=== PATIENT | male | born 1995 | race Caucasian/White ===

== ENCOUNTER 2016-02-24 22:09 | Emergency (ER) | payer OTHER, MEDICAID ==
[2016-02-24] MEDS ORDERED: HYDROCODONE/APAP 10/325 TAB PO ONE (22:16)
[2016-02-24] MEDS ORDERED: IBUPROFEN 200 MG TAB PO ONE (22:16)
[2016-02-24] MEDS ORDERED: HYDROCODONE/APAP 5/325 TAB ONE (22:20)
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
[2016-02-24] MEDS ORDERED: HYDROCODONE/APAP 5/325 TAB PO ONE (22:23)
[2016-02-24 22:27] VITALS: RESP 16
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
[2016-02-24 23:54] LABS: COLOR YELLOW; LEUKOCYTE ESTERASE,URINE NEGATIVE (NEGATIVE); NITRITE,URINE NEGATIVE (NEGATIVE)
[2016-02-25 00:11] VITALS: BP 119/74; PULSE 57; TEMP 97.9; O2SAT 95
== END 2016-02-25 00:11 | disposition home or self-care (01) ==
DX: S33.5XXA Sprain of ligaments of lumbar spine, initial encounter (principal); F17.200 Nicotine dependence, unspecified, uncomplicated; V49.49XA Driver injured in collision with other motor vehicles in traffic accident, initial encounter; Y92.410 Unspecified street and highway as the place of occurrence of the external cause; Y93.89 Activity, other specified

== ENCOUNTER → 2016-04-23 | Outpatient (CLI) | payer MEDICAID | LOC: FIMAGING 15:14 | DX: M25.511 Pain in right shoulder (principal) ==

== ENCOUNTER 2018-03-01 17:46 | Emergency (ER) | payer MEDICAID ==
--- NOTE | 2018-03-01 18:37 | EDPHY ---
H & P Stated Complaint: muscle wasting and night sweats concerned he might have TB Source: Patient Exam Limitations: No limitations - Personal History Current Tetanus Diphtheria and Acellular Pertussis (TDAP): Unsure - Medical/Surgical History Hx Asthma: Yes Hx Chronic Respiratory Disease: No Hx Diabetes: No Hx Cardiac Disease: No Hx Renal Disease: No Hx Cirrhosis: No Hx Alcoholism: No Hx HIV/AIDS: No Hx Splenectomy or Spleen Trauma: No Other PMH: PTSD, schizophrenia, appendectomy - Social History Smoking Status: Former smoker Time Seen by Provider: 03/01/18 18:35 HPI/ROS: HPI: This is a 22-year-old male who presents with Chief Complaint: muscle wasting and night sweats concerned he might have TB Location: Body Quality: Night sweats, muscle wasting, cough Duration: Several years Signs and Symptoms: no fever, no nausea, no vomiting, no diarrhea, no urinary symptoms, no chest pain, no shortness of breath, no wheezing, no sore throat, no neck stiffness, no joint pain, no swollen glands, no ear pain, no rash Timing: Daily Severity: Moderate Context: Patient has a history of posttraumatic stress disorder, schizophrenia presents with 1-2 years of symptoms that include intermittent dry cough, 9 and sweats and muscle wasting but no weight loss, fevers, nausea, vomiting, rigors, chills. He reports that the symptoms occur every few months and last for a few days and then self-resolved. 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 Denies any homelessness, IV drug use, foreign travel. Patient does not have a primary care provider. Reports that he is not concerned about STDs including HIV. Patient used to smoke 1-2 packs per day more barrel reds but quit within the last 3 months. Modifying Factors: None Comment: ROS: A comprehensive 10 system review of systems is otherwise negative aside from elements mentioned in the history of present illness. MEDICAL/SURGICAL/SOCIAL HISTORY: Medical history: PTSD, schizophrenia Surgical history: Appendectomy Social history: Former smoker. Family history noncontributory. CONSTITUTIONAL: Extremely well-appearing young adult white male, awake and alert, no obvious distress HEENT: Atraumatic and normocephalic, PERRL, EOMI. Nares patent; no rhinorrhea; no nasal mucosal edema. Tympanic membranes clear. Oropharynx clear, no exudate and moist pink mucosa. Airway patent. No lymphadenopathy. No meningismus. Cardiovascular: Normal S1/S2, regular rate, regular rhythm, without murmur rub or gallop. PULMONARY/CHEST: Symmetrical and nontender. Clear to auscultation bilaterally. Good air movement. No accessory muscle usage. ABDOMEN: Soft, nondistended, nontender, no rebound, no guarding, no peritoneal signs, no masses or organomegaly. No CVAT. EXTREMITIES: 2/2 pulses, strength 5/5, no deformities, no clubbing, no cyanosis or edema. NEUROLOGICAL: no focal neuro deficits. GCS 15. SKIN: Warm and dry, no erythema. no rash. Good capillary refill. (Mary Pratt) Constitutional: Initial Vital Signs Temperature (C) 36.5 C 03/01/18 17:50 Heart Rate 69 03/01/18 17:50 Respiratory Rate 18 03/01/18 17:50 Blood Pressure 127/64 H 03/01/18 17:50 O2 Sat (%) 98 03/01/18 17:50 O2 Delivery Mode Room Air Allergies/Adverse Reactions: Penicillins Allergy (Verified 03/01/18 17:48) Home Medications: Medication Instructions Recorded Albuterol [Proventil Inhaler HFA 1 - 2 puffs IH Q4H PRN #1 mdi 03/01/18 (*)] Medical Decision Making - Diagnostics Imaging Results: Imaging Impressions Chest X-Ray 03/01/18 18:49 Impression: Peribronchial thickening, consistent with reactive airways' disease , with no focal infiltrate identified. If there is progression of the patient's hemoptysis, chest CT imaging could be considered. ED Course/Re-evaluation: Vital signs reviewed upon arrival and stable. Physical exam is completely benign including lung exam. Chest x-ray my read shows no opacity, no effusion, no widened mediastinum, no cavitary lesions. + reactive airway disease Labs reviewed. No signs of leukocytosis/anemia/platelet dysfunction/JULISSA/ elevated LFTs/electrolyte imbalance. Patient was referred to the [facility] for PPD placement and HIV testing. This patient was seen under the supervision of my secondary supervising physician. I evaluated care for this patient independently. Discussed this patient with Dr. Hutchins who did not see the patient. (Mary Pratt) I did not see this patient while he was in the emergency department. However his care was discussed with the PA while the patient was in the department. I agree with treatment plan and management (Brian Hutchins) Differential Diagnosis: Differential diagnosis includes but is not limited to autoimmune disease, tuberculosis, anemia, bronchitis, viral syndrome. (Mary Pratt) - Data Points Laboratory Results: Laboratory Results 03/01/18 19:05 03/01/18 19:05 03/01/18 03/01/18 19:05 19:05 WBC 6.38 10^3/uL 10^3/uL (3.80-9.50) RBC 5.07 10^6/uL 10^6/uL (4.40-6.38) Hgb 15.6 g/dL g/dL (13.7-17.5) Hct 44.4 % % (40.0-51.0) MCV 87.6 fL fL (81.5-99.8) MCH 30.8 pg pg (27.9-34.1) MCHC 35.1 g/dL g/dL (32.4-36.7) RDW 12.5 % % (11.5-15.2) Plt Count 245 10^3/uL 10^3/uL (150-400) MPV 9.7 fL fL (8.7-11.7) Neut % (Auto) 51.1 % % (39.3-74.2) Lymph % (Auto) 39.7 % % (15.0-45.0) [place] % (Auto) 7.2 % % (4.5-13.0) Eos % (Auto) 1.6 % % (0.6-7.6) Baso % (Auto) 0.2 % L % (0.3-1.7) Nucleat RBC Rel Count 0.0 % % (0.0-0.2) Absolute Neuts (auto) 3.27 10^3/uL 10^3/uL (1.70-6.50) Absolute Lymphs (auto) 2.53 10^3/uL 10^3/uL (1.00-3.00) Absolute Monos (auto) 0.46 10^3/uL 10^3/uL (0.30-0.80) Absolute Eos (auto) 0.10 10^3/uL 10^3/uL (0.03-0.40) Absolute Basos (auto) 0.01 10^3/uL L 10^3/uL (0.02-0.10) Absolute Nucleated RBC 0.00 10^3/uL 10^3/uL (0-0.01) Immature Gran % 0.2 % % (0.0-1.1) Immature Gran # 0.01 10^3/uL 10^3/uL (0.00-0.10) Sodium 136 mEq/L mEq/L (135-145) Potassium 4.4 mEq/L mEq/L (3.5-5.2) Chloride 106 mEq/L mEq/L (97-110) Carbon Dioxide 24 mEq/l mEq/l (22-31) Anion Gap 6 mEq/L mEq/L (6-14) BUN 18 mg/dL mg/dL (7-23) Creatinine 1.2 mg/dL mg/dL (0.7-1.3) Estimated GFR > 60 Glucose 79 mg/dL mg/dL (70-100) Calcium 9.1 mg/dL mg/dL (8.5-10.4) Total Bilirubin 0.5 mg/dL mg/dL (0.1-1.4) AST 25 IU/L IU/L (17-59) ALT 28 IU/L IU/L (21-72) Alkaline Phosphatase 93 IU/L IU/L (38-126) Total Protein 6.8 g/dL g/dL (6.3-8.2) Albumin 4.1 g/dL g/dL (3.5-5.0) Departure - Departure Disposition: Home, Routine, Self-Care Clinical Impression: RAD (reactive airway disease) Qualifiers: Asthma severity: mild Asthma persistence: unspecified Qualified Code(s): J45.909 - Unspecified asthma, uncomplicated Condition: Good Instructions: Reactive Airways Disease (ED) Additional Instructions: Please refrain from smoking marijuana or tobacco products. Chest x-ray today does not show any acute process but does show reactive airway disease changes. Use albuterol 1-2 puffs every 4-6 hours as needed for shortness of breath/ wheezing. Establish care at the [facility] in the next 7-10 days. Referrals: [facility],. [Clinic] - As per Instructions Prescriptions: Albuterol [Proventil Inhaler HFA (*)] 1 - 2 puffs IH Q4H PRN #1 mdi PRN Reason: Short Of Breath/Dyspnea
[2018-03-01 19:14] LABS: PLATELET COUNT 245 10^3/uL (150-400)
[2018-03-01 19:31] VITALS: BP 125/60
== END 2018-03-01 19:30 | disposition home or self-care (01) ==
DX: J45.909 Unspecified asthma, uncomplicated (principal); F43.10 Post-traumatic stress disorder, unspecified; F20.89 Other schizophrenia